=== PATIENT | male | born 1950 | race Caucasian/White ===

== ENCOUNTER 2019-07-27 09:48 | Inpatient (IN) | payer MEDICAID, MEDICARE, OTHER ==
[~2019-07-27] VITALS: Ht 188 cm; Wt 84.3 kg
[~2019-07-27 09:48] MED LIST: ALBU8.5H8 INH; FLO110IN INH; NICO-687 TD; NO HOME MEDS; PANT-47 PO; THI100T PO
[2019-07-27] MEDS ORDERED: normal saline 1000ml 1,000 ML IV ONE (10:28)
[2019-07-27] MEDS ORDERED: normal saline 1000ML IV soln IVB ONE (10:30)
[2019-07-27] MEDS ORDERED: pantoprazole 40 MG vial IV ONE (10:30)
[2019-07-27] MEDS ORDERED: diltiazem 5mg/ml 5ml inj. IV ONE (10:45)
[2019-07-27 10:55] LABS: HEMOGLOBIN 12.4 g/dl (14.0-17.9); LYMPHOCYTES # (AUTO) 0.1 X10'3 (1.1-4.8); MEAN PLATELET VOLUME 10.7 FL (7.4-10.4); MONOCYTES # (AUTO) 0.6 X10'3 (0-0.9); NEUTROPHILS # (AUTO) 5.6 X10'3 (1.8-7.7); WHITE BLOOD COUNT 6.3 X10'3 (4.5-11.0)
[2019-07-27 11:02] LABS: BASOPHILS % (AUTO) 0.3 % (0-1); EOSINOPHILS % (AUTO) 0 % (0-6); HEMATOCRIT 37.4 % (42.0-52.0); LYMPHOCYTES % (AUTO) 1.3 % (21-51); MEAN CORPUSCULAR HEMOGLOBIN 32.3 PG (27.0-31.0); MEAN CORPUSCULAR HGB CONC 33.2 g/dL (33.0-36.5); MEAN CORPUSCULAR VOLUME 97.4 FL (78-98); MONOCYTES % (AUTO) 9.8 % (2-12); NEUTROPHILS % (AUTO) 88.6 % (42-75); PLATELET COUNT 76 X10'3 (140-440); RED BLOOD COUNT 3.84 X10'6 (4.70-6.10); RED CELL DISTRIBUTION WIDTH 14.4 % (11.5-14.5)
[2019-07-27 11:12] LABS: PLATELET ESTIMATE DECREASED; TOTAL CELLS COUNTED 100
[2019-07-27 11:13] LABS: PARTIAL THROMBOPLASTIN TIME 33 SECONDS (22-32); TOXIC GRANULATION 1+; TOXIC VACUOLATION 1+
[2019-07-27] MEDS ORDERED: ringers solution, lactated 1000ml IV soln IV ONE (11:15)
[2019-07-27] MEDS ORDERED: ringers solution, lacted 1,000 ML IV ONE (11:15)
[2019-07-27 11:16] LABS: ABG BASE EXCESS -12.5 mmol/L (-2.0-3.0); ABG HCO3 12.9 mmol/L (22.0-26.0); ABG OXYGEN SATURATION 89.2 % (95-98); ABG PCO2 (T) 28.5 mmHg (35.0-45.0); ABG PH (T) 7.274 (7.350-7.450); ABG PO2 (T) 71.1 mmHg (83-108); ALLEN'S TEST POSITIVE; FCOHb 0.3 % (0.5-1.5); FMetHb 0.1 % (0.3-1.12); FO2Hb 88.8 % (94-100); TOTAL HEMOGLOBIN 12.5 G/dl (14.0-17.9)
[2019-07-27 11:20] LABS: ALBUMIN 3.2 G/DL (3.4-5.0); ALBUMIN/GLOBULIN RATIO 1.1 (1.1-1.5); ALKALINE PHOSPHATASE 173 IU/L (46-116); ANION GAP 20 (8-16); BILIRUBIN,TOTAL 2.6 MG/DL (0.1-1.0); BLOOD UREA NITROGEN 97 MG/DL (7-18); BUN/CREATININE RATIO 30.8 (5.4-32.0); CALCIUM 7.9 MG/DL (8.5-10.1); CHLORIDE 90 MMOL/L (99-107); CREATININE 3.15 MG/DL (0.60-1.10); ETHANOL 0.052 GM/DL (0.0-0.010); GLUCOSE 89 MG/DL (70-104); SODIUM 128 MMOL/L (135-145); TOTAL PROTEIN 6.2 G/DL (6.4-8.2); eGFR 20 ML/MIN
[2019-07-27 11:27] LABS: ALANINE AMINOTRANSFERASE 1961 U/L (12-78)
[2019-07-27 11:35] LABS: ASPARTATE AMINO TRANSFERASE > 7000 U/L (10-37)
[2019-07-27] MEDS ORDERED: NO HOME MEDS ×2 (12:26→13:01)
[2019-07-27 12:54] LABS: ACETAMINOPHEN < 2.0 UG/ML (10-30)
[2019-07-27] MEDS ORDERED: potassium Cl 20 mEq SR tablet PO PRN ×2 (13:05)
[2019-07-27] MEDS ORDERED: magnesium 2GM in 50ml NS 50 ML IV PRN (13:05)
[2019-07-27] MEDS ORDERED: magnesium Cl slow-release 64mg tablet PO PRN (13:05)
[2019-07-27] MEDS ORDERED: magnesium 4gm in 100ml NS 100 ML IV PRN (13:05)
[2019-07-27] MEDS ORDERED: potassium CL 10mEq/100ml bag 100 ML IV PRN ×2 (13:05)
[2019-07-27] MEDS ORDERED: ondansetron/PF 4mg/2ml inj IV PRN (13:05)
[2019-07-27 13:48] LABS: CLARITY,URINE SLIGHTLY CLOUDY (Clear); COLOR,URINE AMBER (Yellow); GLUCOSE, URINE NEGATIVE (Neg); KETONES,URINE NEGATIVE (Neg); LEUKOCYTE ESTERASE ,URINE NEGATIVE (Neg); NITRITES, URINE NEGATIVE (Neg); OCCULT BLOOD,URINE LARGE (Neg); PH,URINE 5.5 (4.8-8.0); PROTEIN,URINE 30 mg/dl (Neg)
[2019-07-27 13:49] LABS: UA COLLECTION TYPE NON-SPECIFIED
[2019-07-27 13:54] LABS: HYALINE CASTS >30 /LPF (NEGATIVE)
[2019-07-27 13:58] LABS: BACTERIA,URINE 1+ /HPF (Neg); RENAL CELLS, URINE FEW /HPF; SQUAMOUS EPITHELIAL CELL,UR FEW /LPF (FEW); TRANSITIONAL EPI CELLS,URINE FEW /HPF; WBC,URINE 0-4 /HPF (0-4)
[2019-07-27 13:59] LABS: SPERM FEW /HPF (NEGATIVE)
--- NOTE | 2019-07-27 15:19 | NUR ---
Critical lab result paged to Dr. Coughlin. PAGER ID: [phone] MESSAGE: Critical lab. Gabby x [phone]. Wilfred De La Cruz [id number]. Lactic acid 7.3, down from 8.0. Patient arrived to U. Thanks!
[2019-07-27 15:20] VITALS: BP 107/67
--- NOTE | 2019-07-27 15:25 | NUR ---
Patient admitted to PCU from ED. patient amb[facility] bed [facility]. Tele monitor applied. VS taken and stable at this time, on 2L NC. Oriented to room and call light use. Awake, alert, no complaints at this time. Gates in place. Will continue to monitor.
--- NOTE | 2019-07-27 16:06 | NUR ---
PAGER ID: [phone] MESSAGE: Gabby amadou [phone]. Wilfred De La Cruz 3026B. Pt AFIB with RVR in the 130's. Thanks!
--- NOTE | 2019-07-27 16:30 | NUR ---
12 lead EKG obtained by order of DR. Coughlin. Also gave order for digoxin IVP one dose and urgent echo. NS @ 100mL/hr. obtained orders and placed in JUL. EKG reviewed by Dr. Coughlin.
[2019-07-27] MEDS ORDERED: digoxin 250mcg/ml 2ml ampule IV ONE (16:40)
[2019-07-27] MEDS: normal saline 1000ml 1,000 ML IV SCH ×2 (17:00→23:06)
[2019-07-27 18:00] VITALS: BP 94/61
--- NOTE | 2019-07-27 18:30 | NUR ---
Problems reprioritized. Patient report given, questions answered & plan of care reviewed with Dakota MAR.
--- NOTE | 2019-07-27 18:32 | NUR ---
Patient in room PCU 3026. I have received report from Gabby MAR and had the opportunity to ask questions and assume patient care.
[2019-07-27] MEDS: K and/or MAG REPLACEMENT MC SCH (20:02)
[2019-07-27] MEDS ORDERED: thiamine inj. 100 MG in normal saline 100ml IV soln 100 ML IV ONE (21:15)
[2019-07-27 22:00] VITALS: BP 104/63
--- NOTE | 2019-07-27 22:15 | NUR ---
pt tremulous, anxious, complaints of restless, per pt this is how he felt with prior ETOH withdrawal, t Addendum: 07/27/19 at 2309 by Rohit Clemente RN pt received 2mg lorazepam IV per protocol.
[2019-07-27] MEDS: LORazepam 2 mg/ml vial IV PRN (22:39)
[2019-07-27] MEDS: folic acid 1mg/0.2ml inj IV SCH (22:42)
[2019-07-27] MEDS: MVI, adult No.4 with vit. K 10 ML in dextrose 5% water 500ml 500 ML IV SCH ×2 (22:56)
[2019-07-28] VITALS (9 sets, daily range): BP systolic 93–147; BP diastolic 60–122
--- NOTE | 2019-07-28 00:45 | NUR ---
Notified Dr. Wray pt's HR 130 consistent, BP 99/63, no orders received.
[2019-07-28 06:08] LABS: BASOPHILS % (AUTO) 0.2 % (0-1); EOSINOPHILS % (AUTO) 0.1 % (0-6); HEMATOCRIT 37.1 % (42.0-52.0); HEMOGLOBIN 12.6 g/dl (14.0-17.9); LYMPHOCYTES # (AUTO) 0.2 X10'3 (1.1-4.8); LYMPHOCYTES % (AUTO) 2.9 % (21-51); MEAN CORPUSCULAR HEMOGLOBIN 32.8 PG (27.0-31.0); MEAN CORPUSCULAR VOLUME 96.4 FL (78-98); MEAN PLATELET VOLUME 10.8 FL (7.4-10.4); MONOCYTES # (AUTO) 0.6 X10'3 (0-0.9); MONOCYTES % (AUTO) 7.6 % (2-12); NEUTROPHILS # (AUTO) 7.3 X10'3 (1.8-7.7); NEUTROPHILS % (AUTO) 89.2 % (42-75); PLATELET COUNT 68 X10'3 (140-440); RED BLOOD COUNT 3.85 X10'6 (4.70-6.10); RED CELL DISTRIBUTION WIDTH 14.3 % (11.5-14.5); WHITE BLOOD COUNT 8.2 X10'3 (4.5-11.0)
--- NOTE | 2019-07-28 06:12 | NUR ---
Problems reprioritized. Patient report given, questions answered & plan of care reviewed with Olga MAR.
--- NOTE | 2019-07-28 06:30 | NUR ---
Patient in room PCU 3026. I have received report from Dakota MAR and had the opportunity to ask questions and assume patient care.
[2019-07-28 06:39] LABS: ALBUMIN 2.9 G/DL (3.4-5.0); ALKALINE PHOSPHATASE 182 IU/L (46-116); ANION GAP 13 (8-16); BILIRUBIN,DIRECT 2.1 MG/DL (0-0.3); BILIRUBIN,TOTAL 2.9 MG/DL (0.1-1.0); BLOOD UREA NITROGEN 95 MG/DL (7-18); CALCIUM 7.8 MG/DL (8.5-10.1); CHLORIDE 94 MMOL/L (99-107); CREATININE 2.57 MG/DL (0.60-1.10); GLUCOSE 127 MG/DL (70-104); POTASSIUM 4.7 MMOL/L (3.5-5.1); SODIUM 128 MMOL/L (135-145); TOTAL PROTEIN 5.8 G/DL (6.4-8.2); eGFR 25 ML/MIN
[2019-07-28 07:01] LABS: ALANINE AMINOTRANSFERASE 1453 U/L (12-78); ASPARTATE AMINO TRANSFERASE 3300 U/L (10-37)
[2019-07-28] MEDS: MVI, adult No.4 with vit. K 10 ML in dextrose 5% water 500ml 500 ML IV SCH ×2 (07:53)
[2019-07-28] MEDS: thiamine inj. 100 MG in normal saline 100ml IV soln 100 ML IV SCH (07:53)
[2019-07-28] MEDS: LORazepam 2 mg/ml vial IV PRN ×2 (07:54→22:48)
[2019-07-28] MEDS: normal saline 1000ml 1,000 ML IV SCH ×2 (07:54→17:14)
[2019-07-28] MEDS: K and/or MAG REPLACEMENT MC SCH ×2 (08:00→20:29)
--- NOTE | 2019-07-28 09:09 | NUR ---
Page sent to Dr. Coughlin [id number] Vinicio De La Cruz, HR trending 130's-140's. Also, do you want to repeat lactic acid? Olga MAR ext [phone]
[2019-07-28] MEDS: folic acid 1mg/0.2ml inj IV SCH (09:12)
[2019-07-28] MEDS ORDERED: digoxin 250mcg/ml 2ml ampule IV ONE (09:40)
--- NOTE | 2019-07-28 10:05 | NUR ---
IV digoxin administered per MD order. EKG was completed prior to administration. Lactic acid follow up lab is pending still. Will continue to monitor.
--- NOTE | 2019-07-28 13:04 | NUR ---
Patient has been drowsy possibly r/t Ativan administration. Patient pulled out PIV this am, was attempting to get out of bed and was noticeably tremulous. One dose administered. Pt. has been A/O X4, however just drowsy. Pt's lung sounds are course. RN requested MD to assess if there is anything else we should be doing at this time. RN requested f/u digoxin. Vital signs have been somewhat stable. IV Digoxin ordered for HR. Will continue to monitor.
--- NOTE | 2019-07-28 15:25 | NUR ---
Page sent to Dr. Coughlin PAGER ID: [phone] MESSAGE: [id number] Vinicio De La Cruz HR still trending in the 140's after IV digoxin administration. Blood pressure 106/74. Olga MAR 260
[2019-07-28] MEDS ORDERED: diltiazem 5mg/ml 5ml inj. IV ONE (15:35)
[2019-07-28] MEDS ORDERED: diltiazem-D5W 125mg/125ml 125 ML IV SCH (16:55)
[2019-07-28] MEDS: diltiazem-NS 100mg/100ml 100 ML IV SCH (17:15)
--- NOTE | 2019-07-28 18:05 | NUR ---
Cardizem gtt ordered at 5mg/hr. Cardizem gtt initiated. HR trending in the one teens-120's. Will report to NOC shift.
--- NOTE | 2019-07-28 18:19 | NUR ---
Problems reprioritized. Patient report given, questions answered & plan of care reviewed with Dakota MAR.
--- NOTE | 2019-07-28 18:26 | NUR ---
Patient in room PCU 3026. I have received report from Olga MAR and had the opportunity to ask questions and assume patient care.
--- NOTE | 2019-07-28 22:30 | NUR ---
pt restless tremulous, pulling at lines and getting out of bed
[2019-07-29] VITALS (10 sets, daily range): BP systolic 90–102; BP diastolic 46–72
[2019-07-29 03:08] LABS: BASOPHILS % (AUTO) 0 % (0-1); EOSINOPHILS % (AUTO) 0.4 % (0-6); HEMOGLOBIN 12.2 g/dl (14.0-17.9); LYMPHOCYTES # (AUTO) 0.2 X10'3 (1.1-4.8); LYMPHOCYTES % (AUTO) 3.2 % (21-51); MEAN CORPUSCULAR HEMOGLOBIN 32.6 PG (27.0-31.0); MEAN CORPUSCULAR HGB CONC 33.9 g/dL (33.0-36.5); MEAN CORPUSCULAR VOLUME 96.3 FL (78-98); MEAN PLATELET VOLUME 10.3 FL (7.4-10.4); MONOCYTES # (AUTO) 0.4 X10'3 (0-0.9); MONOCYTES % (AUTO) 6.9 % (2-12); NEUTROPHILS % (AUTO) 89.5 % (42-75); PLATELET COUNT 66 X10'3 (140-440); RED BLOOD COUNT 3.74 X10'6 (4.70-6.10); RED CELL DISTRIBUTION WIDTH 14.2 % (11.5-14.5); WHITE BLOOD COUNT 5.5 X10'3 (4.5-11.0)
[2019-07-29 03:11] LABS: ALBUMIN 2.7 G/DL (3.4-5.0); ANION GAP 11 (8-16); BLOOD UREA NITROGEN 89 MG/DL (7-18); BUN/CREATININE RATIO 45.2 (5.4-32.0); CALCIUM 7.5 MG/DL (8.5-10.1); CHLORIDE 99 MMOL/L (99-107); CREATININE 1.97 MG/DL (0.60-1.10); GLUCOSE 121 MG/DL (70-104); POTASSIUM 4.2 MMOL/L (3.5-5.1); SODIUM 133 MMOL/L (135-145); TOTAL CARBON DIOXIDE 23.5 MMOL/L (24-32); eGFR 34 ML/MIN
[2019-07-29] MEDS: normal saline 1000ml 1,000 ML IV SCH ×4 (03:28→21:33)
--- NOTE | 2019-07-29 06:10 | NUR ---
Problems reprioritized. Patient report given, questions answered & plan of care reviewed with Olga MAR.
--- NOTE | 2019-07-29 06:48 | NUR ---
Patient in room PCU 3026. I have received report from Dakota MAR and had the opportunity to ask questions and assume patient care.
[2019-07-29] MEDS: K and/or MAG REPLACEMENT MC SCH ×2 (08:00→19:11)
[2019-07-29] MEDS: MVI, adult No.4 with vit. K 10 ML in dextrose 5% water 500ml 500 ML IV SCH ×2 (08:19)
[2019-07-29] MEDS: thiamine inj. 100 MG in normal saline 100ml IV soln 100 ML IV SCH (08:19)
[2019-07-29] MEDS: folic acid 1mg/0.2ml inj IV SCH (08:29)
[2019-07-29] MEDS: diltiazem-NS 100mg/100ml 100 ML IV SCH (08:34)
--- NOTE | 2019-07-29 08:49 | NUR ---
Notified Dr. Coughlin regarding course lung sounds and difficulty clearing secretions however, he has intermittent productive cough. Sp02 within normal limits. New orders to obtain CXR and DC Ativan. Pt. was fed breakfast this am due to tremulous hands. Mild in comparison to yesterday. Will continue to monitor.
--- NOTE | 2019-07-29 09:25 | NUR ---
PAGER ID: [phone] MESSAGE: [phone] Vinicio De La Cruz - CXR: Cardiomegly, pulmonary emphysema. and chronic interstitial changes with subtle groundglass opacities in the right upper lobe and right lung base. Olga MAR 6022
[2019-07-29 11:09] LABS: ALKALINE PHOSPHATASE 193 IU/L (46-116); BILIRUBIN,DIRECT 1.7 MG/DL (0-0.3); BILIRUBIN,TOTAL 2.4 MG/DL (0.1-1.0); TOTAL PROTEIN 5.4 G/DL (6.4-8.2)
[2019-07-29 11:10] LABS: ALANINE AMINOTRANSFERASE 1073 U/L (12-78); ASPARTATE AMINO TRANSFERASE 1642 U/L (10-37)
[2019-07-29 13:05] LABS: ABG BASE EXCESS -1.4 mmol/L (-2.0-3.0); ABG HCO3 23.6 mmol/L (22.0-26.0); ABG PCO2 (T) 40.8 mmHg (35.0-45.0); ABG PH (T) 7.381 (7.350-7.450); ABG PO2 (T) 55.4 mmHg (83-108); ALLEN'S TEST POSITIVE; FCOHb 0.1 % (0.5-1.5); FMetHb 0.1 % (0.3-1.12); FO2Hb 87.8 % (94-100); TOTAL HEMOGLOBIN 12.5 G/dl (14.0-17.9)
[2019-07-29 16:02] LABS: HEPATITIS C ANTIBODY 4.9 s/co ratio (0.0-0.9)
--- NOTE | 2019-07-29 16:06 | NUR ---
PAGER ID: [phone] MESSAGE: [phone] Vinicio De La Cruz - Results of ABG are in. Pt. on 2/L via NC and saturations are WNL. Olga MAR 1095
--- NOTE | 2019-07-29 18:23 | NUR ---
Patient in room PCU 3026. I have received report from Olga MAR and had the opportunity to ask questions and assume patient care.
--- NOTE | 2019-07-29 18:23 | NUR ---
Problems reprioritized. Patient report given, questions answered & plan of care reviewed with Dakota MAR.
[2019-07-29] MEDS ORDERED: LORazepam 1 MG tablet PO PRN (21:15)
[2019-07-29] MEDS ORDERED: LORazepam 2 mg/ml vial IV PRN (21:15)
[2019-07-30] VITALS (10 sets, daily range): BP systolic 84–117; BP diastolic 49–92
[2019-07-30 05:40] LABS: BASOPHILS % (AUTO) 0.1 % (0-1); EOSINOPHILS % (AUTO) 0.3 % (0-6); HEMATOCRIT 35.6 % (42.0-52.0); HEMOGLOBIN 12.1 g/dl (14.0-17.9); LYMPHOCYTES # (AUTO) 0.3 X10'3 (1.1-4.8); LYMPHOCYTES % (AUTO) 3.8 % (21-51); MEAN CORPUSCULAR HEMOGLOBIN 32.9 PG (27.0-31.0); MEAN CORPUSCULAR HGB CONC 34.1 g/dL (33.0-36.5); MEAN CORPUSCULAR VOLUME 96.5 FL (78-98); MEAN PLATELET VOLUME 10.6 FL (7.4-10.4); NEUTROPHILS # (AUTO) 5.9 X10'3 (1.8-7.7); NEUTROPHILS % (AUTO) 81.8 % (42-75); PLATELET COUNT 64 X10'3 (140-440); RED BLOOD COUNT 3.69 X10'6 (4.70-6.10); RED CELL DISTRIBUTION WIDTH 14.5 % (11.5-14.5); WHITE BLOOD COUNT 7.2 X10'3 (4.5-11.0)
[2019-07-30 06:07] LABS: ALANINE AMINOTRANSFERASE 766 U/L (12-78); ALBUMIN 2.5 G/DL (3.4-5.0); ALBUMIN/GLOBULIN RATIO 0.9 (1.1-1.5); ALKALINE PHOSPHATASE 208 IU/L (46-116); ANION GAP 8 (8-16); ASPARTATE AMINO TRANSFERASE 741 U/L (10-37); BILIRUBIN,DIRECT 1.8 MG/DL (0-0.3); BILIRUBIN,TOTAL 2.7 MG/DL (0.1-1.0); BLOOD UREA NITROGEN 59 MG/DL (7-18); BUN/CREATININE RATIO 54.6 (5.4-32.0); CALCIUM 7.5 MG/DL (8.5-10.1); CHLORIDE 105 MMOL/L (99-107); CREATININE 1.08 MG/DL (0.60-1.10); GLUCOSE 114 MG/DL (70-104); MAGNESIUM 2.1 MG/DL (1.5-2.4); POTASSIUM 3.9 MMOL/L (3.5-5.1); SODIUM 139 MMOL/L (135-145); TOTAL PROTEIN 5.4 G/DL (6.4-8.2); eGFR 68 ML/MIN
--- NOTE | 2019-07-30 06:35 | NUR ---
Problems reprioritized. Patient report given, questions answered & plan of care reviewed with Jamie RN.
--- NOTE | 2019-07-30 07:14 | NUR ---
Patient in room PCU 3026. I have received report from ISABELA HAMMOND and had the opportunity to ask questions and assume patient care.
[2019-07-30] MEDS: K and/or MAG REPLACEMENT MC SCH ×2 (08:00→20:00)
[2019-07-30] MEDS: normal saline 1000ml 1,000 ML IV SCH (08:10)
[2019-07-30] MEDS: folic acid 1mg/0.2ml inj IV SCH (08:12)
[2019-07-30] MEDS: thiamine inj. 100 MG in normal saline 100ml IV soln 100 ML IV SCH (08:15)
--- NOTE | 2019-07-30 09:35 | NUR ---
FROM AM REPORT, CARDIZEM GTT WAS TURNED OFF AT 0550 FOR BRIEF EPISODE BRADYCARDIA DOWN TO HR 40. HAVE NOT RE STARTED. HR HAS BEEN UNDER 100. DR. CRAWFORD NOTIFIED, STATES"WHAT DOES HE TAKE AT HOME" INFORMED HE TAKES NOTHING AT HOME. ASKED IF HE WANTS CARD GTT ON OR OFF, NO ANSWER AT THIS TIME.
[2019-07-30] MEDS: MVI, adult No.4 with vit. K 10 ML in dextrose 5% water 500ml 500 ML IV SCH ×2 (10:31)
[2019-07-30] MEDS ORDERED: carVEDilol 3.125mg tablet PO SCH (13:40)
[2019-07-30] MEDS ORDERED: LORazepam 2 mg/ml vial IV PRN (13:45)
[2019-07-30] MEDS: carVEDilol 3.125mg tablet PO SCH ×2 (14:17→19:38)
--- NOTE | 2019-07-30 14:41 | NUR ---
PAGER ID: [phone] MESSAGE: DR. CRAWFORD, [id number]/MIKE, MAY I PLEASE HAVE AN ORDER TO DC THE CARDIZEM GTT? HAS BEEN OFF SINCE 0550. CONNIE [phone]. TY
--- NOTE | 2019-07-30 18:38 | NUR ---
Problems reprioritized. Patient report given, questions answered & plan of care reviewed with ISABELA LUCAS.
--- NOTE | 2019-07-30 20:15 | NUR ---
Patient in room U 3026. I have received report from ISABELA Ayala and had the opportunity to ask questions and assume patient care. Addendum: 07/30/19 at 2015 by Azra Sorenson RN Amended: Links added.
[2019-07-31] VITALS (20 sets, daily range): BP systolic 83–125; BP diastolic 46–76
[2019-07-31 05:22] LABS: BASOPHILS % (AUTO) 0.1 % (0-1); EOSINOPHILS % (AUTO) 0.5 % (0-6); HEMATOCRIT 36.7 % (42.0-52.0); HEMOGLOBIN 12.4 g/dl (14.0-17.9); LYMPHOCYTES # (AUTO) 0.2 X10'3 (1.1-4.8); LYMPHOCYTES % (AUTO) 3.4 % (21-51); MEAN CORPUSCULAR HEMOGLOBIN 32.9 PG (27.0-31.0); MEAN CORPUSCULAR HGB CONC 33.8 g/dL (33.0-36.5); MEAN CORPUSCULAR VOLUME 97.3 FL (78-98); MEAN PLATELET VOLUME 10.5 FL (7.4-10.4); MONOCYTES # (AUTO) 0.9 X10'3 (0-0.9); MONOCYTES % (AUTO) 13.5 % (2-12); NEUTROPHILS # (AUTO) 5.6 X10'3 (1.8-7.7); NEUTROPHILS % (AUTO) 82.5 % (42-75); PLATELET COUNT 76 X10'3 (140-440); RED BLOOD COUNT 3.77 X10'6 (4.70-6.10); RED CELL DISTRIBUTION WIDTH 14.9 % (11.5-14.5); WHITE BLOOD COUNT 6.8 X10'3 (4.5-11.0)
[2019-07-31 05:40] LABS: ALANINE AMINOTRANSFERASE 599 U/L (12-78); ALBUMIN 2.4 G/DL (3.4-5.0); ALBUMIN/GLOBULIN RATIO 0.8 (1.1-1.5); ALKALINE PHOSPHATASE 244 IU/L (46-116); ANION GAP 5 (8-16); ASPARTATE AMINO TRANSFERASE 439 U/L (10-37); BILIRUBIN,DIRECT 2.2 MG/DL (0-0.3); BILIRUBIN,TOTAL 3.3 MG/DL (0.1-1.0); BLOOD UREA NITROGEN 36 MG/DL (7-18); BUN/CREATININE RATIO 42.9 (5.4-32.0); CALCIUM 7.6 MG/DL (8.5-10.1); CHLORIDE 105 MMOL/L (99-107); CREATININE 0.84 MG/DL (0.60-1.10); GLUCOSE 124 MG/DL (70-104); MAGNESIUM 1.9 MG/DL (1.5-2.4); POTASSIUM 4.1 MMOL/L (3.5-5.1); SODIUM 139 MMOL/L (135-145); TOTAL PROTEIN 5.3 G/DL (6.4-8.2); eGFR > 90 ML/MIN
--- NOTE | 2019-07-31 06:11 | NUR ---
Problems reprioritized. Patient report given, questions answered & plan of care reviewed with ISABELA Eli. Addendum: 07/31/19 at 0611 by Azra Sorenson RN Amended: Links added.
--- NOTE | 2019-07-31 06:19 | NUR ---
Problems reprioritized. Patient report given, questions answered & plan of care reviewed with ISABELA Ayala. Addendum: 07/31/19 at 0619 by Azra Sorenson RN Amended: Links added.
--- NOTE | 2019-07-31 06:20 | NUR ---
Patient in room PCU 3026. I have received report from ISABELA LUCAS and had the opportunity to ask questions and assume patient care.
[2019-07-31] MEDS: K and/or MAG REPLACEMENT MC SCH ×2 (08:00→19:09)
[2019-07-31] MEDS: carVEDilol 3.125mg tablet PO SCH ×2 (09:34→19:22)
[2019-07-31] MEDS: thiamine inj. 100 MG in normal saline 100ml IV soln 100 ML IV SCH (09:41)
[2019-07-31] MEDS: folic acid 1mg/0.2ml inj IV SCH (09:41)
[2019-07-31] MEDS: pantoprazole 40 MG vial IV SCH ×2 (09:42→19:21)
[2019-07-31] MEDS ORDERED: FLU VACC QS2019-20 36MOS UP/PF 60 MCG/0.5 ML SYRINGE IMVAC ONE (10:00)
[2019-07-31] MEDS ORDERED: pneumococcal 23-VAL P-sac vacc 25 mcg/0.5ml vial IMVAC ONE (10:00)
[2019-07-31] MEDS: levoFLOXACIN-Levaquin 500mg/D5 100 ML IV SCH (10:05)
[2019-07-31] MEDS: ipratropium/albuterol 3ml nebule NEB SCH ×4 (10:37→23:53)
[2019-07-31] MEDS: MVI, adult No.4 with vit. K 10 ML in dextrose 5% water 500ml 500 ML IV SCH ×2 (10:56)
[2019-07-31] MEDS ORDERED: LIDOcaine Viscous 15ml cup ONE (10:59)
[2019-07-31] MEDS ORDERED: fentaNYL/PF 50MCG/1 ML 2ML syringe ONE (10:59)
[2019-07-31] MEDS ORDERED: MIDAZolam 5mg/5ml vial ONE (10:59)
[2019-07-31 15:18] LABS: H PYLORI ANTIBODY NEGATIVE (Neg)
--- NOTE | 2019-07-31 15:31 | NUR ---
Malnutrition consult: Pt admitted with GIB possibly alcoholic gastritis and acute hepatitis secondary to alcoholism and hep C. LFTs improving per MD notes. Unable to obtain information from pt at this time as pt currently documented as A/O x 2 and confused. Most recent scaled wt hx is 81.4 kg taken November 2015 with standing scale, current standing scaled wt is 76.4 kg. Patient's diet just advanced from clear liquid to heart healthy s/p EGD, pending first meal since diet advancement. Pt documented with severe muscle weakness and no edema. Currently insufficient information to fully asses for malnutrition at this time. Will f/u tomorrow. Addendum: 07/31/19 at [address] Amended: Links added.
--- NOTE | 2019-07-31 18:36 | NUR ---
Patient in room PCU 3026. I have received report from Jamie MAR and had the opportunity to ask questions and assume patient care.
--- NOTE | 2019-07-31 18:49 | NUR ---
Problems reprioritized. Patient report given, questions answered & plan of care reviewed with ISABELA CAMARENA.
[2019-07-31] MEDS ORDERED: LORazepam 2 mg/ml vial IV PRN (21:15)
[2019-07-31] MEDS ORDERED: LORazepam 1 MG tablet PO PRN (21:15)
[2019-08-01 02:00] VITALS: BP 84/62
[2019-08-01] MEDS: ipratropium/albuterol 3ml nebule NEB SCH ×6 (03:42→23:40)
[2019-08-01 06:04] LABS: BASOPHILS % (AUTO) 0 % (0-1); EOSINOPHILS # (AUTO) 0.1 X10'3 (0-0.9); HEMOGLOBIN 12.9 g/dl (14.0-17.9); LYMPHOCYTES # (AUTO) 0.4 X10'3 (1.1-4.8); LYMPHOCYTES % (AUTO) 5.1 % (21-51); MEAN CORPUSCULAR HEMOGLOBIN 33.1 PG (27.0-31.0); MEAN CORPUSCULAR HGB CONC 33.9 g/dL (33.0-36.5); MEAN CORPUSCULAR VOLUME 97.8 FL (78-98); MONOCYTES # (AUTO) 0.9 X10'3 (0-0.9); MONOCYTES % (AUTO) 12.3 % (2-12); NEUTROPHILS # (AUTO) 5.8 X10'3 (1.8-7.7); NEUTROPHILS % (AUTO) 81.6 % (42-75); PLATELET COUNT 86 X10'3 (140-440); RED BLOOD COUNT 3.88 X10'6 (4.70-6.10); RED CELL DISTRIBUTION WIDTH 15.2 % (11.5-14.5); WHITE BLOOD COUNT 7.2 X10'3 (4.5-11.0)
[2019-08-01 06:24] LABS: ALANINE AMINOTRANSFERASE 467 U/L (12-78); ALBUMIN 2.3 G/DL (3.4-5.0); ALBUMIN/GLOBULIN RATIO 0.8 (1.1-1.5); ALKALINE PHOSPHATASE 250 IU/L (46-116); ANION GAP 6 (8-16); ASPARTATE AMINO TRANSFERASE 246 U/L (10-37); BILIRUBIN,DIRECT 1.9 MG/DL (0-0.3); BILIRUBIN,TOTAL 2.7 MG/DL (0.1-1.0); BLOOD UREA NITROGEN 29 MG/DL (7-18); BUN/CREATININE RATIO 37.2 (5.4-32.0); CALCIUM 7.5 MG/DL (8.5-10.1); CHLORIDE 104 MMOL/L (99-107); CREATININE 0.78 MG/DL (0.60-1.10); GLUCOSE 122 MG/DL (70-104); MAGNESIUM 1.8 MG/DL (1.5-2.4); POTASSIUM 3.9 MMOL/L (3.5-5.1); SODIUM 139 MMOL/L (135-145); TOTAL PROTEIN 5.3 G/DL (6.4-8.2); eGFR > 90 ML/MIN
--- NOTE | 2019-08-01 06:29 | NUR ---
Problems reprioritized. Patient report given, questions answered & plan of care reviewed with Liz MAR.
--- NOTE | 2019-08-01 06:52 | NUR ---
Patient in room PCU 3026. I have received report from ISABELA Morejon and had the opportunity to ask questions and assume patient care. Patient asleep in bed and in no acute distress.
[2019-08-01 07:00] VITALS: BP 104/67
[2019-08-01 07:29] LABS: PLATELET ESTIMATE DECREASED; TOTAL CELLS COUNTED 100
[2019-08-01] MEDS: K and/or MAG REPLACEMENT MC SCH ×2 (08:00→19:45)
[2019-08-01] MEDS: carVEDilol 3.125mg tablet PO SCH ×2 (08:42→19:45)
[2019-08-01] MEDS: levoFLOXACIN-Levaquin 500mg/D5 100 ML IV SCH (08:42)
[2019-08-01] MEDS: pantoprazole 40 MG vial IV SCH (08:42)
[2019-08-01] MEDS: folic acid 1mg/0.2ml inj IV SCH (09:49)
[2019-08-01] MEDS: MVI, adult No.4 with vit. K 10 ML in dextrose 5% water 500ml 500 ML IV SCH ×2 (09:50)
[2019-08-01] MEDS: thiamine inj. 100 MG in normal saline 100ml IV soln 100 ML IV SCH (09:50)
--- NOTE | 2019-08-01 10:21 | NUR ---
Patient tolerating PO medications, can you please change thiamine and multivitamins to PO? Thank you. Addendum: 08/01/19 at 1120 by Liz Gross RN Meant to send this message to pharmacy instead of making a note.
--- NOTE | 2019-08-01 10:23 | NUR ---
Orders to DC sitter put in put in per Dr. Trujillo.
[2019-08-01 11:00] VITALS: BP 92/64
[2019-08-01 15:00] VITALS: BP 100/60
--- NOTE | 2019-08-01 15:53 | NUR ---
F/u for malnutrition consult: Pt seen at bedside reports UBW 160 lbs with 10 lb wt loss in six months despite current scaled wt of 172 lbs. If pt truly lost reported wt loss this would be non-significant wt loss of 6% in six months. Pt documented with 0-25% PO intake on heart healthy diet not meeting nutrient needs. Pt currently endorses a good appetite and reports not eating much d/t difficulty swallowing secondary to sore throat from oxygen. RD consulted for BSS and pt agrees to soft to chew foods in the mean time. Pt states he makes sure to wear his dentures during meal times. Pt with no visible fat or muscle wasting and no documented significant decrease in muscle strength or edema. Pt currently does not meet criteria for malnutrition. Pt provided with alternative heart healthy menu to provide additional food options. All food preferences were d/w dietary. LBM 07/29. Pt reports significant diarrhea [employer] however states it has resolved. Pt provided with RD contact information. Will continue to follow. Recommendations: 1) Continue heart healthy diet 2) Soft to chew foods; additional texture modification per recs pending BSS 3) Vanilla pudding BIDLD 4) Continue routine Thiamine, Folic acid, and MVI given EtOH hx 5) Bowel care PRN 6) Wt per rx Addendum: 08/01/19 at [address] Amended: Links added.
--- NOTE | 2019-08-01 18:33 | NUR ---
Patient in room PCU 3023Z. I have received report from ISABELA Hill and had the opportunity to ask questions and assume patient care.
--- NOTE | 2019-08-01 18:34 | NUR ---
Problems reprioritized. Patient report given, questions answered & plan of care reviewed with ISABELA Aleman. Patient stable at transfer of care.
[2019-08-01 19:00] VITALS: BP 109/60
[2019-08-01] MEDS: lactobacillus rhamnosus 10,000 MMU CELLS/CAPSULE PO SCH (19:45)
[2019-08-01] MEDS: pantoprazole 40mg Tablet.DR PO SCH (19:45)
[2019-08-01 23:00] VITALS: BP 90/60
[2019-08-02] MEDS: ipratropium/albuterol 3ml nebule NEB SCH ×6 (03:41→23:29)
[2019-08-02 05:55] LABS: ALANINE AMINOTRANSFERASE 371 U/L (12-78); ALBUMIN 2.2 G/DL (3.4-5.0); ALBUMIN/GLOBULIN RATIO 0.7 (1.1-1.5); ALKALINE PHOSPHATASE 268 IU/L (46-116); ASPARTATE AMINO TRANSFERASE 165 U/L (10-37); BILIRUBIN,DIRECT 1.5 MG/DL (0-0.3); BILIRUBIN,TOTAL 2.2 MG/DL (0.1-1.0); MAGNESIUM 1.7 MG/DL (1.5-2.4); TOTAL PROTEIN 5.3 G/DL (6.4-8.2)
--- NOTE | 2019-08-02 06:10 | NUR ---
Problems reprioritized. Patient report given, questions answered & plan of care reviewed with ISABELA Hill.
[2019-08-02 07:00] VITALS: BP 92/64
[2019-08-02] MEDS: K and/or MAG REPLACEMENT MC SCH ×2 (08:00→20:00)
[2019-08-02] MEDS: lactobacillus rhamnosus 10,000 MMU CELLS/CAPSULE PO SCH ×2 (08:29→19:19)
[2019-08-02] MEDS: multivitamins, therapeutics tablet PO SCH (08:30)
[2019-08-02] MEDS: carVEDilol 3.125mg tablet PO SCH ×2 (08:31→19:19)
[2019-08-02] MEDS: thiamine 100mg tablet PO SCH (08:31)
[2019-08-02] MEDS: pantoprazole 40mg Tablet.DR PO SCH ×2 (08:32→19:19)
[2019-08-02] MEDS: folic acid 1mg tablet PO SCH (08:32)
[2019-08-02 08:42] VITALS: BP 96/54
[2019-08-02] MEDS: levoFLOXACIN 500mg tablet PO SCH (10:21)
[2019-08-02 11:00] VITALS: BP 98/56
--- NOTE | 2019-08-02 13:01 | NUR ---
Paged Dr. Trujillo regarding patient's HR PAGER ID: [phone] MESSAGE: [phone]. Vinicio De La Cruz. Patient's HR 130s-140s at rest. Thank you. Liz MAR x [phone] Addendum: 08/02/19 at 1322 by Liz Gross RN Order put in for coreg 3.125mg PO per Dr. Trujillo.
[2019-08-02] MEDS ORDERED: carVEDilol 3.125mg tablet PO ONE (13:20)
--- NOTE | 2019-08-02 13:21 | NUR ---
Order for Coreg 3.125mg PO one time now put in per Dr. Trujillo.
[2019-08-02 15:00] VITALS: BP_SYST 85; BP_SYST 96; BP_DIAS 54
[2019-08-02] MEDS ORDERED: iohexol 350MG/ML 100ml bottle IV ONE (15:20)
--- NOTE | 2019-08-02 15:33 | NUR ---
Patient left for CT
--- NOTE | 2019-08-02 16:00 | NUR ---
Patient back from CT
--- NOTE | 2019-08-02 16:10 | NUR ---
O2 Sat at rest on room air: 88% If below 89%: Recovery O2 Sat at rest on 2LPM 96% via nasal cannula (mask/nasal cannula, etc..) No further documentation is necessary. If O2 Sat did not drop below 89% on room air,ambulate patient on room air. O2 Sat while ambulating on room air:___% Recovery O2 Sat while ambulating on ___LPM:___% No further documentation is necessary. If patient does not drop below 89% while ambulating, he/she does not qualify for home O2.
[2019-08-02 18:00] VITALS: BP 98/52
--- NOTE | 2019-08-02 18:29 | NUR ---
Patient in room PCU 3026. I have received report from ISABELA Hill and had the opportunity to ask questions and assume patient care.
--- NOTE | 2019-08-02 18:29 | NUR ---
Problems reprioritized. Patient report given, questions answered & plan of care reviewed with ISABELA Mccoy. Patient stable at transfer of care.
[2019-08-02 22:00] VITALS: BP 94/64
[2019-08-03] VITALS (7 sets, daily range): BP systolic 80–105; BP diastolic 55–68
[2019-08-03] MEDS: ipratropium/albuterol 3ml nebule NEB SCH ×6 (03:05→23:00)
--- NOTE | 2019-08-03 06:16 | NUR ---
Problems reprioritized. Patient report given, questions answered & plan of care reviewed with ISABELA Hill.
[2019-08-03 06:24] LABS: BASOPHILS % (AUTO) 0.2 % (0-1); EOSINOPHILS % (AUTO) 0.4 % (0-6); HEMATOCRIT 36.8 % (42.0-52.0); HEMOGLOBIN 12.4 g/dl (14.0-17.9); LYMPHOCYTES # (AUTO) 0.5 X10'3 (1.1-4.8); LYMPHOCYTES % (AUTO) 5.2 % (21-51); MEAN CORPUSCULAR HEMOGLOBIN 32.7 PG (27.0-31.0); MEAN CORPUSCULAR HGB CONC 33.7 g/dL (33.0-36.5); MEAN CORPUSCULAR VOLUME 96.8 FL (78-98); MEAN PLATELET VOLUME 9.8 FL (7.4-10.4); MONOCYTES # (AUTO) 0.6 X10'3 (0-0.9); NEUTROPHILS # (AUTO) 8.7 X10'3 (1.8-7.7); NEUTROPHILS % (AUTO) 88.2 % (42-75); PLATELET COUNT 155 X10'3 (140-440); WHITE BLOOD COUNT 9.9 X10'3 (4.5-11.0)
--- NOTE | 2019-08-03 06:25 | NUR ---
Patient in room PCU 3026. I have received report from ISABELA Mccoy and had the opportunity to ask questions and assume patient care. Patient awake in bed and in no acute distress.
[2019-08-03 06:33] LABS: ALANINE AMINOTRANSFERASE 302 U/L (12-78); ALBUMIN 2.2 G/DL (3.4-5.0); ALBUMIN/GLOBULIN RATIO 0.7 (1.1-1.5); ALKALINE PHOSPHATASE 297 IU/L (46-116); ANION GAP 3 (8-16); ASPARTATE AMINO TRANSFERASE 137 U/L (10-37); BILIRUBIN,DIRECT 1.2 MG/DL (0-0.3); BLOOD UREA NITROGEN 23 MG/DL (7-18); BUN/CREATININE RATIO 29.9 (5.4-32.0); CALCIUM 7.4 MG/DL (8.5-10.1); CHLORIDE 102 MMOL/L (99-107); CREATININE 0.77 MG/DL (0.60-1.10); GLUCOSE 107 MG/DL (70-104); MAGNESIUM 1.5 MG/DL (1.5-2.4); POTASSIUM 4.5 MMOL/L (3.5-5.1); SODIUM 135 MMOL/L (135-145); TOTAL CARBON DIOXIDE 29.7 MMOL/L (24-32); TOTAL PROTEIN 5.3 G/DL (6.4-8.2); eGFR > 90 ML/MIN
[2019-08-03] MEDS: K and/or MAG REPLACEMENT MC SCH ×2 (08:00→20:00)
[2019-08-03] MEDS: carVEDilol 3.125mg tablet PO SCH ×2 (08:35→20:00)
[2019-08-03] MEDS: lactobacillus rhamnosus 10,000 MMU CELLS/CAPSULE PO SCH ×2 (08:36→21:10)
[2019-08-03] MEDS: pantoprazole 40mg Tablet.DR PO SCH ×2 (08:36→21:10)
[2019-08-03] MEDS: folic acid 1mg tablet PO SCH (08:37)
[2019-08-03] MEDS: thiamine 100mg tablet PO SCH (08:37)
[2019-08-03] MEDS: multivitamins, therapeutics tablet PO SCH (08:37)
[2019-08-03] MEDS: levoFLOXACIN 500mg tablet PO SCH (10:17)
--- NOTE | 2019-08-03 16:19 | NUR ---
Called to give report to [facility], but awaiting on patient's insurance before they will accept him.
--- NOTE | 2019-08-03 18:16 | NUR ---
Problems reprioritized. Patient report given, questions answered & plan of care reviewed with ISABELA Mccoy. Patient stable at transfer of care.
--- NOTE | 2019-08-03 18:17 | NUR ---
Patient in room PCU 3026. I have received report from ISABELA Hill and had the opportunity to ask questions and assume patient care.
--- NOTE | 2019-08-03 21:23 | NUR ---
Coreg held for BP of 74/50. MD called and notified for low BP. New order for 1L NS bolus give now.
[2019-08-03] MEDS ORDERED: normal saline 1000ml 1,000 ML IV ONE (21:35)
--- NOTE | 2019-08-03 23:30 | NUR ---
MD called and notified for BP 84/50 taken manually after total of 1.5L NS Bolus per order. Extremities warm, pulses palpable, capillary refill <3, A&Ox4, making urine. No new orders given at this time patient is asymptomatic. Will continue to monitor closely.
[2019-08-04 02:00] VITALS: BP 83/60
[2019-08-04] MEDS: ipratropium/albuterol 3ml nebule NEB SCH ×6 (03:15→23:29)
--- NOTE | 2019-08-04 06:10 | NUR ---
Problems reprioritized. Patient report given, questions answered & plan of care reviewed with ISABELA Johnson.
--- NOTE | 2019-08-04 06:15 | NUR ---
Patient in room PCU 3026. I have received report from ISABELA Mccoy and had the opportunity to ask questions and assume patient care.
[2019-08-04 07:00] VITALS: BP 108/70
[2019-08-04] MEDS: pantoprazole 40mg Tablet.DR PO SCH ×2 (08:03→20:41)
[2019-08-04] MEDS: carVEDilol 3.125mg tablet PO SCH (08:03)
[2019-08-04] MEDS: lactobacillus rhamnosus 10,000 MMU CELLS/CAPSULE PO SCH ×2 (08:03→20:40)
[2019-08-04] MEDS: thiamine 100mg tablet PO SCH (08:03)
[2019-08-04] MEDS: folic acid 1mg tablet PO SCH (08:03)
[2019-08-04] MEDS: multivitamins, therapeutics tablet PO SCH (08:03)
[2019-08-04] MEDS: K and/or MAG REPLACEMENT MC SCH ×2 (08:05→20:41)
[2019-08-04] MEDS ORDERED: carVEDilol 3.125mg tablet PO ONE (09:20)
[2019-08-04] MEDS ORDERED: magnesium 2GM in 50ml NS 50 ML IV ONE (09:20)
--- NOTE | 2019-08-04 09:33 | NUR ---
New orders from Ronnie for a one time order for Magnesium 2gm IV r/t 2-3 run of [employer], increase carvedilol dose to 6.25 BID, and a now order of carvedilol 3.125.
[2019-08-04] MEDS: levoFLOXACIN 500mg tablet PO SCH (10:13)
[2019-08-04 11:00] VITALS: BP 102/65
--- NOTE | 2019-08-04 12:04 | NUR ---
Reassessment: Pt s/p BSS with ST recs mechanical soft grind all food with thin liquids d/t pt with difficulty swallowing regular solid food. Diet order has been adjusted as such and pt documented with 75-100% PO intake meeting nutrient needs. [facility] 08/01. No nutrition intervention warranted at this time. Will continue to follow. Recommendations: 1) Continue heart healthy mechanical soft grind all food with thin liquids per ST recs 2) Vanilla pudding BIDLD 3) Continue routine Thiamine, Folic acid, and MVI given EtOH hx 4) Bowel care PRN 5) Wt per rx Addendum: 08/04/19 at [address] Amended: Links added.
[2019-08-04 17:58] VITALS: BP 96/62
[2019-08-04 18:00] VITALS: BP 91/59
--- NOTE | 2019-08-04 18:00 | NUR ---
Patient in room PCU 3026. I have received report from ELDA MAR and had the opportunity to ask questions and assume patient care.
--- NOTE | 2019-08-04 18:59 | NUR ---
Problems reprioritized. Patient report given, questions answered & plan of care reviewed with Israel RN.
[2019-08-04] MEDS: carvedilol 6.25mg tablet PO SCH (20:00)
[2019-08-04] MEDS ORDERED: magnesium Cl slow-release 64mg tablet PO PRN (20:25)
--- NOTE | 2019-08-04 21:50 | NUR ---
VTACH-8 BEAT RUN, PROVIDER NOTIFIED, MG REPLACED EARLIER IV AND ORAL; NO NEW ORDERS PER MD SARBJIT CAR RN
[2019-08-04 22:00] VITALS: BP 80/66
[2019-08-05] VITALS (8 sets, daily range): BP systolic 81–97; BP diastolic 51–69
[2019-08-05] MEDS: ipratropium/albuterol 3ml nebule NEB SCH ×5 (03:05→19:08)
[2019-08-05] MEDS ORDERED: ipratropium/albuterol 3ml nebule NEB PRN (03:10)
[2019-08-05 05:53] LABS: ALANINE AMINOTRANSFERASE 201 U/L (12-78); ALBUMIN 2.1 G/DL (3.4-5.0); ALBUMIN/GLOBULIN RATIO 0.7 (1.1-1.5); ALKALINE PHOSPHATASE 255 IU/L (46-116); ANION GAP 4 (8-16); ASPARTATE AMINO TRANSFERASE 92 U/L (10-37); BILIRUBIN,TOTAL 1.5 MG/DL (0.1-1.0); BLOOD UREA NITROGEN 15 MG/DL (7-18); BUN/CREATININE RATIO 22.1 (5.4-32.0); CALCIUM 7.6 MG/DL (8.5-10.1); CHLORIDE 103 MMOL/L (99-107); CREATININE 0.68 MG/DL (0.60-1.10); GLUCOSE 115 MG/DL (70-104); POTASSIUM 4.3 MMOL/L (3.5-5.1); SODIUM 134 MMOL/L (135-145); TOTAL CARBON DIOXIDE 27.3 MMOL/L (24-32); TOTAL PROTEIN 5.2 G/DL (6.4-8.2); eGFR > 90 ML/MIN
[2019-08-05 06:11] LABS: BASOPHILS % (AUTO) 0.6 % (0-1); EOSINOPHILS % (AUTO) 0.5 % (0-6); HEMATOCRIT 32.3 % (42.0-52.0); LYMPHOCYTES # (AUTO) 0.4 X10'3 (1.1-4.8); LYMPHOCYTES % (AUTO) 6.4 % (21-51); MEAN CORPUSCULAR HEMOGLOBIN 32.7 PG (27.0-31.0); MEAN CORPUSCULAR HGB CONC 33.9 g/dL (33.0-36.5); MEAN CORPUSCULAR VOLUME 96.6 FL (78-98); MEAN PLATELET VOLUME 9.3 FL (7.4-10.4); MONOCYTES # (AUTO) 0.5 X10'3 (0-0.9); NEUTROPHILS # (AUTO) 5.9 X10'3 (1.8-7.7); NEUTROPHILS % (AUTO) 85.5 % (42-75); PLATELET COUNT 202 X10'3 (140-440); RED BLOOD COUNT 3.35 X10'6 (4.70-6.10); RED CELL DISTRIBUTION WIDTH 14.8 % (11.5-14.5); WHITE BLOOD COUNT 6.9 X10'3 (4.5-11.0)
--- NOTE | 2019-08-05 06:34 | NUR ---
Patient in room PCU 3026. I have received report from ISABELA Bernabe and had the opportunity to ask questions and assume patient care. Patient currently resting in bed, bed locked and low, call light in reach, no acute distress, will continue to monitor.
--- NOTE | 2019-08-05 06:43 | NUR ---
Problems reprioritized. Patient report given, questions answered & plan of care reviewed with MAXIMO MAR.
[2019-08-05] MEDS: pantoprazole 40mg Tablet.DR PO SCH ×2 (07:48→19:41)
[2019-08-05] MEDS: carvedilol 6.25mg tablet PO SCH ×2 (07:48→19:41)
[2019-08-05] MEDS: thiamine 100mg tablet PO SCH (07:48)
[2019-08-05] MEDS: multivitamins, therapeutics tablet PO SCH (07:48)
[2019-08-05] MEDS: lactobacillus rhamnosus 10,000 MMU CELLS/CAPSULE PO SCH ×2 (07:48→19:41)
[2019-08-05] MEDS: folic acid 1mg tablet PO SCH (07:48)
[2019-08-05] MEDS: K and/or MAG REPLACEMENT MC SCH ×2 (07:50→18:52)
[2019-08-05] MEDS: levoFLOXACIN 500mg tablet PO SCH (10:44)
--- NOTE | 2019-08-05 17:05 | NUR ---
PAGER ID: [phone] MESSAGE: ISABELA Pierre, ext [phone], [phone], Dorothy, dent out this morning, now has increased scrotal swelling and fluid build up around tip of penis, was able to void a small amount earlier, will bladder scan as well.
--- NOTE | 2019-08-05 17:15 | NUR ---
PAGER ID: [phone] MESSAGE: Dontae Pierre, ext [phone], [phone], Dorothy, bladder scan showed 618ml in bladder, patient only able to void 10ml, do you want me to straight cath or reinsert dent?
[2019-08-05] MEDS ORDERED: LIDOcaine 2% 10ml TOPICAL JELLY (Urojet) TP ONE (17:20)
--- NOTE | 2019-08-05 18:28 | NUR ---
Problems reprioritized. Patient report given, questions answered & plan of care reviewed with ISABELA Landin.
--- NOTE | 2019-08-05 18:34 | NUR ---
Patient in room PCU 3026. I have received report from ISABELA Pierre and had the opportunity to ask questions and assume patient care.
[2019-08-06 02:00] VITALS: BP 85/50
--- NOTE | 2019-08-06 06:24 | NUR ---
Problems reprioritized. Patient report given, questions answered & plan of care reviewed with ISABELA Ayala. Addendum: 08/06/19 at 0637 by Urvashi Walden RN Problems reprioritized. Patient report given, questions answered & plan of care reviewed with ISABELA Song.
[2019-08-06 06:30] VITALS: BP 82/56
--- NOTE | 2019-08-06 06:34 | NUR ---
Patient in room PCU 3022F. I have received report from Urvashi MAR and had the opportunity to ask questions and assume patient care.
[2019-08-06] MEDS: ipratropium/albuterol 3ml nebule NEB SCH ×4 (07:00→19:13)
[2019-08-06] MEDS: folic acid 1mg tablet PO SCH (07:32)
[2019-08-06] MEDS: pantoprazole 40mg Tablet.DR PO SCH ×2 (07:32→20:16)
[2019-08-06] MEDS: lactobacillus rhamnosus 10,000 MMU CELLS/CAPSULE PO SCH ×2 (07:32→20:16)
[2019-08-06] MEDS: multivitamins, therapeutics tablet PO SCH (07:32)
[2019-08-06] MEDS: carvedilol 6.25mg tablet PO SCH ×2 (07:32→20:00)
[2019-08-06] MEDS: thiamine 100mg tablet PO SCH (07:32)
[2019-08-06] MEDS: K and/or MAG REPLACEMENT MC SCH ×2 (08:00→20:00)
[2019-08-06 10:01] LABS: BASOPHILS # (AUTO) 0.1 X10'3 (0-0.2); EOSINOPHILS % (AUTO) 0.6 % (0-6); HEMATOCRIT 35.5 % (42.0-52.0); HEMOGLOBIN 11.8 g/dl (14.0-17.9); LYMPHOCYTES # (AUTO) 0.4 X10'3 (1.1-4.8); LYMPHOCYTES % (AUTO) 6.3 % (21-51); MEAN CORPUSCULAR HEMOGLOBIN 32.1 PG (27.0-31.0); MEAN CORPUSCULAR HGB CONC 33.2 g/dL (33.0-36.5); MEAN PLATELET VOLUME 8.7 FL (7.4-10.4); MONOCYTES # (AUTO) 0.5 X10'3 (0-0.9); MONOCYTES % (AUTO) 8.7 % (2-12); NEUTROPHILS # (AUTO) 5.3 X10'3 (1.8-7.7); NEUTROPHILS % (AUTO) 83.4 % (42-75); PLATELET COUNT 252 X10'3 (140-440); RED BLOOD COUNT 3.66 X10'6 (4.70-6.10); RED CELL DISTRIBUTION WIDTH 15.4 % (11.5-14.5); WHITE BLOOD COUNT 6.3 X10'3 (4.5-11.0)
[2019-08-06 10:12] LABS: ANION GAP 1 (8-16); BLOOD UREA NITROGEN 14 MG/DL (7-18); BUN/CREATININE RATIO 17.7 (5.4-32.0); CALCIUM 7.5 MG/DL (8.5-10.1); CHLORIDE 103 MMOL/L (99-107); CREATININE 0.79 MG/DL (0.60-1.10); GLUCOSE 130 MG/DL (70-104); POTASSIUM 4.5 MMOL/L (3.5-5.1); SODIUM 134 MMOL/L (135-145); TOTAL CARBON DIOXIDE 29.9 MMOL/L (24-32); eGFR > 90 ML/MIN
[2019-08-06] MEDS: levoFLOXACIN 500mg tablet PO SCH (10:44)
[2019-08-06 11:00] VITALS: BP 89/60
[2019-08-06 11:07] LABS: ALANINE AMINOTRANSFERASE 169 U/L (12-78); ASPARTATE AMINO TRANSFERASE 70 U/L (10-37); BILIRUBIN,TOTAL 1.1 MG/DL (0.1-1.0)
--- NOTE | 2019-08-06 13:42 | NUR ---
Trung PAIZ PAGER ID: [phone] MESSAGE: Nohemi tobar [phone]. Wilfred Su 3026B. FYI that patient still has moderate scrotal edema. Due to patient's blood pressures, patient would most likely not tolerate lasix.
[2019-08-06 18:00] VITALS: BP 83/48
--- NOTE | 2019-08-06 18:30 | NUR ---
Problems reprioritized. Patient report given, questions answered & plan of care reviewed with Cynthia MAR.
[2019-08-06 21:00] VITALS: BP 108/56
[2019-08-06 22:00] VITALS: BP 90/70
[2019-08-07 02:00] VITALS: BP 89/47
[2019-08-07 05:20] LABS: BASOPHILS # (AUTO) 0.1 X10'3 (0-0.2); BASOPHILS % (AUTO) 1.5 % (0-1); EOSINOPHILS % (AUTO) 0.6 % (0-6); HEMATOCRIT 34.7 % (42.0-52.0); HEMOGLOBIN 11.4 g/dl (14.0-17.9); LYMPHOCYTES # (AUTO) 0.5 X10'3 (1.1-4.8); LYMPHOCYTES % (AUTO) 7.5 % (21-51); MEAN CORPUSCULAR HEMOGLOBIN 31.8 PG (27.0-31.0); MEAN CORPUSCULAR HGB CONC 32.9 g/dL (33.0-36.5); MEAN CORPUSCULAR VOLUME 96.6 FL (78-98); MEAN PLATELET VOLUME 8.9 FL (7.4-10.4); MONOCYTES # (AUTO) 0.5 X10'3 (0-0.9); MONOCYTES % (AUTO) 8.2 % (2-12); NEUTROPHILS # (AUTO) 5.3 X10'3 (1.8-7.7); NEUTROPHILS % (AUTO) 82.2 % (42-75); PLATELET COUNT 271 X10'3 (140-440); RED BLOOD COUNT 3.59 X10'6 (4.70-6.10); WHITE BLOOD COUNT 6.5 X10'3 (4.5-11.0)
[2019-08-07 05:32] LABS: ALBUMIN 2.1 G/DL (3.4-5.0); ANION GAP 2 (8-16); BLOOD UREA NITROGEN 17 MG/DL (7-18); BUN/CREATININE RATIO 22.7 (5.4-32.0); CALCIUM 7.7 MG/DL (8.5-10.1); CHLORIDE 103 MMOL/L (99-107); CREATININE 0.75 MG/DL (0.60-1.10); GLUCOSE 135 MG/DL (70-104); POTASSIUM 4.8 MMOL/L (3.5-5.1); SODIUM 136 MMOL/L (135-145); TOTAL CARBON DIOXIDE 30.7 MMOL/L (24-32); eGFR > 90 ML/MIN
[2019-08-07 06:00] VITALS: BP 87/66
--- NOTE | 2019-08-07 06:49 | NUR ---
Problems reprioritized. Patient report given, questions answered & plan of care reviewed with ISABELA Worley.
--- NOTE | 2019-08-07 06:51 | NUR ---
Pt. SA02 84 on 2.5 LPM. Encouraged pt. to TCDB, SA02 reevaluated=91% on 2.5 LPM. Respiratory paged.
[2019-08-07 06:53] VITALS: BP 87/66
[2019-08-07] MEDS: ipratropium/albuterol 3ml nebule NEB SCH ×3 (07:22→11:32)
[2019-08-07] MEDS: K and/or MAG REPLACEMENT MC SCH (08:00)
[2019-08-07] MEDS: carvedilol 6.25mg tablet PO SCH (08:00)
[2019-08-07] MEDS: multivitamins, therapeutics tablet PO SCH (09:13)
[2019-08-07] MEDS: pantoprazole 40mg Tablet.DR PO SCH (09:14)
[2019-08-07] MEDS: lactobacillus rhamnosus 10,000 MMU CELLS/CAPSULE PO SCH (09:14)
[2019-08-07] MEDS: thiamine 100mg tablet PO SCH (09:14)
[2019-08-07] MEDS: folic acid 1mg tablet PO SCH (09:14)
[2019-08-07 09:16] VITALS: BP 96/48
[2019-08-07] MEDS ORDERED: furosemide 40mg/4ml inj IV ONE (10:30)
--- NOTE | 2019-08-07 10:30 | NUR ---
MD Trujillo aware of pt's low blood pressure this AM and aware coreg was held. He is ordering IV lasix at this point for fluid retention.
[2019-08-07 11:00] VITALS: BP 84/52
--- NOTE | 2019-08-07 11:00 | NUR ---
PAGER ID: [phone] MESSAGE: Vinicio De La Cruz [id number] Pt. BP taken manually HR 78, BP 84/52- ok to give 40mg IV lasix still? any new orders? Brunilda [phone]
[2019-08-07] MEDS: levoFLOXACIN 500mg tablet PO SCH (11:04)
--- NOTE | 2019-08-07 11:16 | NUR ---
Second RN brought in to obtain andrew BP = 96/70.
--- NOTE | 2019-08-07 11:20 | NUR ---
Called pharmacy to verify lasix dose. Stated MD aware of low BP. Pharmacist stated to document since MD is going outside protocol and that it's a good thing pt. is on telemetry. Addendum: 08/07/19 at 1122 by Brunilda Trent RN Stated should not drop systolic only diastolic.
--- NOTE | 2019-08-07 14:52 | NUR ---
Pt. left floor with yolis cargo.
== END 2019-08-07 14:45 | DRG 377 ==
LOC: ER 09:48 → ED HOLD 13:02 → PCU 3S 15:15
PROVIDERS: ADMIT Internal Medicine; ATTEND Internal Medicine
PROC: 0DJ08ZZ Inspection of Upper Intestinal Tract, Via Natural or Artificial Opening Endoscopic (ICD-10-PCS; principal; 2019-07-31)
DX: K26.4 Chronic or unspecified duodenal ulcer with hemorrhage (principal); G92 Toxic encephalopathy; N17.0 Acute kidney failure with tubular necrosis; J69.0 Pneumonitis due to inhalation of food and vomit; I21.A1 Myocardial infarction type 2; E87.2 Acidosis; K70.30 Alcoholic cirrhosis of liver without ascites; K72.90 Hepatic failure, unspecified without coma; K70.10 Alcoholic hepatitis without ascites; K29.71 Gastritis, unspecified, with bleeding; K29.81 Duodenitis with bleeding; F17.210 Nicotine dependence, cigarettes, uncomplicated; I48.91 Unspecified atrial fibrillation; J44.9 Chronic obstructive pulmonary disease, unspecified
CPT/HCPCS: 36415; 36600; 43235; 71045; 71275; 74176; 80048; 80053; 80076; 80162; 80320; 80329; 81001; 82009; 82140; 82247; 82248; 82803; 82948; 83605; 83735; 84300; 84450; 84460; 84484; 85018; 85025; 85610; 85730; 86677; 86706; 86803; 86885; 86900; 86901; 87081; 92508; 92616; 93005; 93306; 94640; 94667; 94668; 94760; 96361; 96374; 96375; 97110; 97116; 97161; 97530; 99152; 99285; A4620; C9113; G0378; J1160; J1940; J1956; J2060; J2250; J3010; J3411; J3475; J3490; J7030; J7040; J7060; J7120; Q2037; Q9967

== ENCOUNTER 2019-08-21 19:12 | Emergency (ER) | payer OTHER ==
[~2019-08-21] VITALS: Ht 188 cm; Wt 84.1 kg
[~2019-08-21 19:12] MED LIST changes: -ALBU8.5H8 INH; +DOPamine/D5W 400mg/250ml bag IV ONE; -FLO110IN INH; -NICO-687 TD; -PANT-47 PO; -THI100T PO; +etomidate 2mg/ml inj. ONE; +rocuronium 10mg/ml inj IV ONE
[2019-08-21] MEDS ORDERED: acetaminophen 325mg tablet PO STA (19:16)
[2019-08-21] MEDS ORDERED: CefTRIAXone 2gm/D5W 50ml 50 ML IV ONE (19:20)
[2019-08-21] MEDS ORDERED: azithromycin/NS 500mg/250ml 250 ML IV ONE (19:20)
[2019-08-21] MEDS ORDERED: normal saline 1000ML IV soln IV ONE (19:20)
[2019-08-21 19:51] LABS: HEMOGLOBIN 10.7 g/dl (14.0-17.9)
[2019-08-21 19:52] LABS: BASOPHILS # (AUTO) 0.1 X10'3 (0-0.2); BASOPHILS % (AUTO) 1.2 % (0-1); EOSINOPHILS % (AUTO) 0.5 % (0-6); HEMATOCRIT 32.4 % (42.0-52.0); LYMPHOCYTES # (AUTO) 0.8 X10'3 (1.1-4.8); LYMPHOCYTES % (AUTO) 13.9 % (21-51); MEAN CORPUSCULAR HEMOGLOBIN 32.4 PG (27.0-31.0); MEAN CORPUSCULAR HGB CONC 32.9 g/dL (33.0-36.5); MEAN CORPUSCULAR VOLUME 98.2 FL (78-98); MEAN PLATELET VOLUME 8.7 FL (7.4-10.4); MONOCYTES # (AUTO) 0.5 X10'3 (0-0.9); MONOCYTES % (AUTO) 8.8 % (2-12); NEUTROPHILS # (AUTO) 4.2 X10'3 (1.8-7.7); NEUTROPHILS % (AUTO) 75.6 % (42-75); PLATELET COUNT 274 X10'3 (140-440); RED CELL DISTRIBUTION WIDTH 13.9 % (11.5-14.5); WHITE BLOOD COUNT 5.5 X10'3 (4.5-11.0)
[2019-08-21 20:05] LABS: ALANINE AMINOTRANSFERASE 35 U/L (12-78); ALBUMIN 2.7 G/DL (3.4-5.0); ALBUMIN/GLOBULIN RATIO 0.7 (1.1-1.5); ALKALINE PHOSPHATASE 138 IU/L (46-116); ANION GAP 4 (8-16); ASPARTATE AMINO TRANSFERASE 31 U/L (10-37); BILIRUBIN,TOTAL 0.6 MG/DL (0.1-1.0); BLOOD UREA NITROGEN 17 MG/DL (7-18); BUN/CREATININE RATIO 14.3 (5.4-32.0); CALCIUM 8.6 MG/DL (8.5-10.1); CHLORIDE 97 MMOL/L (99-107); CREATININE 1.19 MG/DL (0.60-1.10); ETHANOL < 0.010 GM/DL (0.0-0.010); GLUCOSE 166 MG/DL (70-104); POTASSIUM 5.7 MMOL/L (3.5-5.1); SODIUM 134 MMOL/L (135-145); TOTAL PROTEIN 6.6 G/DL (6.4-8.2); eGFR 61 ML/MIN
--- NOTE | 2019-08-21 20:12 | NUR ---
Pt denies the ability to void at this time. Pt refused a straight cath to obtain urine.
[2019-08-21] MEDS ORDERED: FOLI0.4T2 PO (20:19)
[2019-08-21] MEDS ORDERED: THIA50TA10 PO (20:19)
[2019-08-21] MEDS ORDERED: BISA10SU60 RC (20:19)
[2019-08-21] MEDS ORDERED: MAGN24002 PO (20:19)
[2019-08-21] MEDS ORDERED: IPRA3AMP31 IH (20:19)
[2019-08-21] MEDS ORDERED: POTA20TA19 PO (20:19)
[2019-08-21] MEDS ORDERED: HYDR20OI TOP (20:19)
[2019-08-21] MEDS ORDERED: CARV3.12 PO (20:19)
[2019-08-21] MEDS ORDERED: PANT40TA4 PO (20:19)
[2019-08-21] MEDS ORDERED: FURO-149 PO (20:19)
[2019-08-21] MEDS ORDERED: MULT-1074 PO (20:19)
[2019-08-21] MEDS ORDERED: NA P133E4 RC (20:19)
[2019-08-21 20:23] LABS: ANISOCYTOSIS 1+; PLATELET ESTIMATE NORMAL; STOMATOCYTES 1+; TOTAL CELLS COUNTED 100
[2019-08-21 20:24] LABS: LARGE PLATELETS FEW
[2019-08-21] MEDS ORDERED: succinylcholine 20mg/ml inj IV ONE ×2 (20:41→20:46)
[2019-08-21] MEDS ORDERED: etomidate 2mg/ml inj. IV ONE (20:46)
[2019-08-21] MEDS ORDERED: insulin regular, human U-100 3ml vial - multi-dose IV ONE (20:50)
--- NOTE | 2019-08-21 20:53 | NUR ---
LATE ENTRY - USED THE OVERRIDE FUNCTION TO PULL SUCCINYLCHOLINE ON A VERBAL ORDER FROM MD COE FOR RSI IN R\O COVID ROOM #3 - MEDICATION HANDED OFF TO STAFF IN ROOM IT IS ISOLATION. *TIME NOTE DOCUMENTED IS NOT THE TIME MEDICATION WAS PULLED *
[2019-08-21 21:35] LABS: CLARITY,URINE CLEAR (Clear); COLOR,URINE YELLOW (Yellow); GLUCOSE, URINE NEGATIVE (Neg); KETONES,URINE NEGATIVE (Neg); LEUKOCYTE ESTERASE ,URINE NEGATIVE (Neg); NITRITES, URINE NEGATIVE (Neg); OCCULT BLOOD,URINE NEGATIVE (Neg); PROTEIN,URINE NEGATIVE (Neg); UROBILINOGEN,URINE 0.2 E.U/dL (0.2-1.0)
[2019-08-21 21:38] LABS: UA COLLECTION TYPE URINAL
[2019-08-21 21:48] VITALS: BP 86/67
[2019-08-21 21:48] LABS: URINE AMPHETAMINE SCREEN NEGATIVE (Neg); URINE BARBITUATE SCREEN NEGATIVE (Neg); URINE BENZODIAZEPINES SCREEN NEGATIVE (Neg); URINE CANNABINOID SCREEN NEGATIVE (Neg); URINE COCAINE SCREEN NEGATIVE (Neg); URINE METHADONE SCREEN NEGATIVE (Neg); URINE OPIATE SCREEN NEGATIVE (Neg); URINE PHENCYCLIDINE SCREEN NEGATIVE (Neg)
--- NOTE | 2019-08-21 22:55 | NUR ---
CALLED PATIENT DAUGHTER LILLIAN NOTIFIED HER OF POLICY FOR VISITING PATIENT PRIOR TO GOING TO [employer]ORT[employer] TO VISIT PATIENT AT THIS TIME AND HAS CHOSEN [facility] THEIR MORTUARY OF CHOICE AT THIS TIME.
--- NOTE | 2019-08-21 23:20 | NUR ---
Late entry, 2024 pt pushed call light, Pt asked for assistance using the urinal to void. Pt expressed significant air hunger. Pt continues on 3l/min NC oxygen, pulse ox 96% at this time. 2029 Pt became unresponsive, called for additional help. Pt noted to be pulseless and agonal breathing, CPR started and code started. Providers YESENIA Mccain and Dr. Adames to the room. 2048 ROSC at this time. 2049 Epi x 1 administered 2054 Pulseless and CPR resumed 2101 ROSC, A-fib rate of 114. 2111 Pulseless, CPR resumed 2112 110/76 BP during CPR 2115 ROSC NSR 2117 ABG obtained by Mateo, RT 2129 Gates (temp probe) inserted 2138 Pulseless, CPR resumed 2142 PEA with rhythm check 2147 Thready brachial pulse, 86/67, 96 on tele monitor, NSR, Temp 98.1 (Gates) 2151 YESENIA Cortez obtain ultrasound of cardiac pulses 2199 Pt's heart rate noted to be decreasing on tele monitor, difficult to obtain palpated pulses. 2207 Pt noted to be pulseless and confirmed with US at this time. TOD called by Dr. Conde and YESENIA Mccain at this time.
--- NOTE | 2019-08-21 23:41 | NUR ---
Maggie from [facility] phoned to confirm the patient details and will be here to car pick up driver the patient as soon as possible.
--- NOTE | 2019-08-21 23:46 | NUR ---
Late entry See Code see for medication administration details during the code.
--- NOTE | 2019-08-22 00:23 | NUR ---
Phoned [facility] and informed their staff that the patient in the ED. Spoke with Niyah and she reports the charge nurse will be notified. Awaiting mortuary to strip picker for transport to [facility].
== END 2019-08-22 01:29 | disposition expired ==
LOC: ER 19:12
DX: A41.9 Sepsis, unspecified organism (principal); Z20.828 Contact with and (suspected) exposure to other viral communicable diseases; J18.9 Pneumonia, unspecified organism; I48.20 Chronic atrial fibrillation, unspecified; J96.91 Respiratory failure, unspecified with hypoxia; I25.2 Old myocardial infarction; J44.9 Chronic obstructive pulmonary disease, unspecified; F12.90 Cannabis use, unspecified, uncomplicated; Z87.11 Personal history of peptic ulcer disease; Z87.891 Personal history of nicotine dependence; Z86.19 Personal history of other infectious and parasitic diseases; Z88.5 Allergy status to narcotic agent; Z79.899 Other long term (current) drug therapy
CPT/HCPCS: 31500; 36415; 71045; 80053; 80305; 80320; 81003; 82948; 83605; 84145; 85025; 85610; 87040; 87635; 92950; 93005; 96365; 96368; 99291; 99292; J0330; J0456; J0696; J1265; J7030; 94002; 94760